=== PATIENT | female | born 1955 | race Caucasian/White ===

== ENCOUNTER → 2017-02-07 | Outpatient (CLI) | payer OTHER ==
[~2017-02-07] MED LIST: ADVAIR 2501 DISK W/D PO; AMBIEN PO; ANTIVERT PO; ASPIRIN PO; ESTRACE2 MG PO; FEMTRACE PO; FISH OIL DR 1,1 EACH PO; METHYLIN ER; MULTI VITAMIN1 EACH PO; NEURONTIN100 MG PO; PRAVASTATIN SOD40 MG PO; PRILOSEC PO; PRISTIQ50 MG PO; RESTASIS MULTI5.5 ML OU; TRAMADOL HCL100 M1 PO; WELLBUTRIN XL PO
--- NOTE | ~2017-02-07 | MY11 ---
[facility] A Service of [facility] RADIOLOGY TEXT RESULTS PATIENT: JYOTHI DYKES LOCATION: [facility] : 59 UNIT #: [id number] AGE: [address]: Dominga RoldanP SEX: F ORDER DR: [id number] [facility] [address] [place], [place] [address] [id number] O MR#: [id number] Acc #: [id number] NAME: JYOTHI DYKES. : 1955 SEX: F STUDY DATE/TIME: 02/07/2017 13:23 UNIT: [facility] ROOM: STUDY DESCRIPTION: MY Mammogram Screening Dig Rich Attending Physician: Dominga Roldan A.P.R.N. Referring Physician: Dominga Roldan A.P.R.N. Ordering Physician: Dominga Roldan A.P.R.N. Primary Care Physician: Dominga Roldan A.P.R.N. MEDICAL IMAGING REPORT This report is preliminary unless electronic signature is present EXAM Digital screening mammogram, 02/07/2017, [facility]. HISTORY 61-year-old woman no risk elevation. Annual screen. COMPARISON 12/30/2007, 10/09/2010 TECHNIQUE Digital imaging of each breast was completed utilizing screening protocol. Review includes FDA-approved CAD device. FINDINGS Moderate residual fibroglandular parenchyma is noted bilaterally. There is no breast mass. I see no interval occurring microcalcifications and no suspicious architectural distortion. IMPRESSION Negative mammogram. Annual screening recommended. Patients over the age of 40 are entered into a reminder system with target due date for the next mammogram. A result letter will also be sent to the patient. BIRADS: 1 Negative Dictated by... Kaiden George M.D. THIS IS AN ELECTRONICALLY VERIFIED REPORT [facility] A Service of [facility] RADIOLOGY TEXT RESULTS PATIENT: JYOTHI DYKES LOCATION: [facility] : 59 UNIT #: [id number] AGE: [address]: Dominga Roldan SEX: F ORDER DR: Kaiden George M.D. at 02/07/2017 3:23 PM REGAN/rashad TD: 02/07/2017 14:49 JOB #: [id number] MEDICAL IMAGING REPORT Page 1 of 1 COPY
== END | disposition home or self-care (01) ==
LOC: CWCC 13:03
DX: Z12.31 Encounter for screening mammogram for malignant neoplasm of breast (principal)
CPT/HCPCS: G0202